=== PATIENT | male | born 1945 | race African-American/Black ===

== ENCOUNTER 2016-12-16 14:51 | Emergency (ER) | payer MEDICARE, BC ==
--- NOTE | 2016-12-16 15:12 | UC ---
Neck Pain HPI - HPI Summary HPI Summary: complaint of neck pain that started within a week constant aching pain in the base of his neck leaning forwards lessens the pain looking up increases the pain hasn't taken any medication hx of arthritis and cervical stenosis hx of PT use in the past denies numbness and tingling in arms,headache denies any recent trauma - History of Current Complaint Stated Complaint: NECK PAIN Time Seen by Provider: 12/16/16 15:03 Hx Obtained From: Patient - Allergies/Home Medications Allergies/Adverse Reactions: Allergies Allergy/AdvReac Type Severity Reaction Status Date / Time No Known Allergies Allergy Verified 12/16/16 15:25 PMH/Surg Hx/FS Hx/Imm Hx Previously Healthy: Yes Cardiovascular History Of: Reports: Hypertension - Surgical History Surgical History: Yes Surgery Procedure, Year, and Place: 1987- lypo removal from neck. 11/21/2013- [facility] - Family History Known Family History: Positive: Hypertension - mother Negative: Cardiac Disease, Diabetes - Social History Lives: With Family Alcohol Use: Occasionally Substance Use Type: None Smoking Status (MU): Never Smoked Tobacco When Did the Patient Quit Smoking/Using Tobacco: 35 years ago Review Of Systems Constitutional: Positive: Negative Skin: Positive: Negative Eyes: Positive: Negative ENT: Positive: Negative Respiratory: Positive: Negative Cardiovascular: Positive: Negative Gastrointestinal: Positive: Negative Genitourinary: Positive: Negative Musculoskeletal: Positive: Other: - neck pain Neurological: Positive: Negative Psychological: Positive: Negative All Other Systems Reviewed And Are Negative: Yes Physical Exam Triage Information Reviewed: Yes Appearance: No Pain Distress, Well-Nourished Vital Signs Reviewed: Yes Eyes: Positive: Conjunctiva Clear ENT: Positive: Pharynx normal, TMs normal. Negative: Nasal congestion Neck: Positive: No Lymphadenopathy, Other: - full ROM Respiratory: Positive: Lungs clear, Normal breath sounds, No respiratory distress Cardiovascular: Positive: RRR, No Murmur Abdomen Description: Positive: Nontender, Soft Bowel Sounds: Positive: Present Musculoskeletal: Positive: No Edema Neurological: Positive: Alert Psychological Exam: Normal Skin Exam: Normal Neck Pain Course/Dx - Course Course Of Treatment: exam completed. hx of chronic neck pain. will send to PT for further evaluation adn treatment - no red flags to warrant imaging - Differential Dx/Diagnosis Differential Dx/HQI/PQRI: Sprain, Strain Provider Diagnoses: neck pain Discharge - Discharge Plan Condition: Stable Disposition: HOME Patient Education Materials: Chronic Neck Pain (GEN) Referrals: Tesfaye Bañuelos MD [Primary Care Provider] - Additional Instructions: Increase fluids and rest Take acetaminophen for fever or pain call PT for further evaluation and treatment. Please review your discharge instructions. . If your symptoms do not improve please call your primary care provider or return to urgent care
[2016-12-16 15:27] VITALS: BP 166/73
== END 2016-12-16 15:30 | disposition home or self-care (01) ==
LOC: UCCORT 14:51
DX: M54.2 Cervicalgia (principal)
CPT/HCPCS: 99211; G0463

== ENCOUNTER 2018-08-20 16:29 | Emergency (ER) | payer MEDICARE, BC, OTHER ==
[2018-08-20 17:01] VITALS: BP 132/59
--- NOTE | 2018-08-20 18:07 | UC ---
Skin Complaint HPI - HPI Summary HPI Summary: Per principal programmer : "Pt suspects bee sting to RIGHT hand today 1500. No hx of analphylaxic rxn. Denies SOB, trouble breathing or swallowing. Noticed localized swelling/pain around bee sting. No meds taken. " -There is no redness or swelling. States he is only here because his was concerned. She is in the waiting room. There is no swelling in his lips or tongue. No shortness of breath or wheezing. No nausea vomiting or diarrhea. Is not lightheaded or dizzy. - History of Current Complaint Chief Complaint: UCGeneralIllness Time Seen by Provider: 08/20/18 18:01 Stated Complaint: BEE STING Pain Intensity: 0 - Allergy/Home Medications Allergies/Adverse Reactions: Allergies Allergy/AdvReac Type Severity Reaction Status Date / Time No Known Allergies Allergy Verified 08/20/18 16:53 Home Medications: Home Medications Atorvastatin* [Lipitor 10 MG*] 10 mg DAILY 08/20/18 [History Confirmed 08/20/18] Lisinopril TAB* [Prinivil TAB 10 MG*] 1 tab DAILY 08/20/18 [History Confirmed ] Review of Systems Constitutional: Negative Skin: Other - mild swelling right palm Eyes: Negative ENT: Negative Respiratory: Negative Cardiovascular: Negative Gastrointestinal: Negative Genitourinary: Negative Motor: Negative Neurovascular: Negative Musculoskeletal: Negative Neurological: Negative Psychological: Negative Is Patient Immunocompromised?: No All Other Systems Reviewed And Are Negative: Yes PMH/Surg Hx/FS Hx/Imm Hx Previously Healthy: Yes Cardiovascular History: Hypertension - Surgical History Surgical History: Yes Surgery Procedure, Year, and Place: 1987- lypo removal from neck. 11/21/2013- [facility] - Family History Known Family History: Positive: Hypertension - mother Negative: Cardiac Disease, Diabetes - Social History Alcohol Use: Occasionally Substance Use Type: None Smoking Status (MU): Former Smoker When Did the Patient Quit Smoking/Using Tobacco: 35 years ago - Immunization History Most Recent Influenza Vaccination: 8541-2850 Most Recent Tetanus Shot: UTD Physical Exam Triage Information Reviewed: Yes Appearance: Well-Appearing, No Pain Distress, Well-Nourished Vital Signs: Initial Vital Signs Temp 98.2 F 08/20/18 16:55 Pulse 62 08/20/18 16:55 Resp 16 08/20/18 16:55 BP 132/59 08/20/18 16:55 Pulse Ox 99 08/20/18 16:55 Vital Signs Reviewed: Yes Eye Exam: Normal ENT Exam: Normal ENT: Positive: Pharynx normal - no swlling of lips, tongue or uvula., TMs normal , Uvula midline. Negative: Pharyngeal erythema, Nasal drainage, Hoarse voice Dental Exam: Normal Respiratory Exam: Normal Respiratory: Positive: Lungs clear, Normal breath sounds, No respiratory distress, No accessory muscle use Cardiovascular Exam: Normal Cardiovascular: Positive: RRR, No Murmur, Pulses Normal Abdomen Description: Positive: Nontender, Soft Musculoskeletal Exam: Normal Neurological Exam: Normal Skin: Positive: Other - right thenar eminence with mild swelling surrounding bee sting. stinger removed. there is no erythema. not tender Course/Dx - Course Course Of Treatment: no evidence for allergic reaction of bee sting - Differential Diagnoses - Skin Complaint Differential Diagnoses: Anaphylaxis, Other - bee sting - Diagnoses Provider Diagnoses: bee sting Discharge - Sign-Out/Discharge Documenting (check all that apply): Patient Departure All imaging exams completed and their final reports reviewed: No Studies - Discharge Plan Condition: Stable Disposition: HOME Patient Education Materials: Insect Bite or Sting (ED) Referrals: Tesfaye Bañuelos MD [Primary Care Provider] - Additional Instructions: There are no signs of any kind of allergic reaction. This is normal swelling that incurs after an insect bite. It is typically a bit more profound after bee sting. There is no swelling in her lips, tongue or throat. He do not have any shortness of breath. - Billing Disposition and Condition Condition: STABLE Disposition: Home
== END 2018-08-20 18:14 | disposition home or self-care (01) ==
LOC: UCCORT 16:29
DX: T63.441A Toxic effect of venom of bees, accidental (unintentional), initial encounter (principal); T78.2XXA Anaphylactic shock, unspecified, initial encounter; M79.89 Other specified soft tissue disorders; Y92.9 Unspecified place or not applicable; Z87.891 Personal history of nicotine dependence
CPT/HCPCS: 99211; G0463